=== PATIENT | male | born 1950 | race Caucasian/White ===

== ENCOUNTER 2022-01-08 09:25 | Day surgery (SDC) | payer MEDICARE, BC ==
[~2022-01-08 09:25] MED LIST: Sodium Chloride 0.9% 10 ML Syringe FLUSH PRN
[2022-01-08] MEDS ORDERED: Propofol 200 MG/20 ML SDV ONE ×2 (09:32→11:21)
[2022-01-08] MEDS: Lactated Ringers 1,000 ML IV SCH (09:56)
[2022-01-08 11:51] VITALS: BP 152/130; PULSE 80
== END 2022-01-08 12:35 | disposition home or self-care (01) ==
LOC: LL.SDS 09:25
PROVIDERS: ATTEND Surgery
DX: D12.0 Benign neoplasm of cecum (principal); D12.3 Benign neoplasm of transverse colon; K57.30 Diverticulosis of large intestine without perforation or abscess without bleeding; R80.8 Other proteinuria; L23.9 Allergic contact dermatitis, unspecified cause; I10 Essential (primary) hypertension; Z87.891 Personal history of nicotine dependence
CPT/HCPCS: J2704; J7120

== ENCOUNTER 2023-06-24 09:28 | Day surgery (SDC) | payer BC, MEDICARE ==
[~2023-06-24 09:28] MED LIST changes: +Midazolam 1 MG/ML 2 ML SDV ONE; +Propofol 200 MG/20 ML SDV ONE; -Sodium Chloride 0.9% 10 ML Syringe FLUSH PRN
[2023-06-24] MEDS ORDERED: Sodium Chloride 0.9% 10 ML Syringe FLUSH PRN (09:30)
[2023-06-24] MEDS: Lactated Ringers 1,000 ML IV SCH (09:55)
[2023-06-24] MEDS: Albuterol/Ipratropium 3.0-0.5 MG/3 ML Neb Soln NEB ONE (10:28)
== END 2023-06-24 12:44 | disposition home or self-care (01) ==
LOC: LL.SDS 09:28
PROVIDERS: ATTEND Surgery
DX: Z12.11 Encounter for screening for malignant neoplasm of colon (principal); D12.3 Benign neoplasm of transverse colon; N40.1 Benign prostatic hyperplasia with lower urinary tract symptoms; I10 Essential (primary) hypertension; J44.9 Chronic obstructive pulmonary disease, unspecified; E11.9 Type 2 diabetes mellitus without complications; Z86.16 Personal history of COVID-19; E78.5 Hyperlipidemia, unspecified; Z87.891 Personal history of nicotine dependence; Z79.51 Long term (current) use of inhaled steroids; Z79.899 Other long term (current) drug therapy; Z91.040 Latex allergy status
CPT/HCPCS: 45385; 82947; J7120; J2250; J2704; J7620-GY

== ENCOUNTER 2024-06-26 10:37 | Observation (INO) | payer MEDICARE ==
[2024-06-26] MEDS ORDERED: Sodium Chloride 0.9% 10 ML Syringe FLUSH PRN (10:42)
[2024-06-26 11:10] LABS: BASOPHILS ABSOLUTE AUTO 0.13 K/uL (0.00-0.20); BASOPHILS PERCENT AUTO 1.3 % (0.0-2.0); EOSINOPHILS ABSOLUTE AUTO 1.13 K/uL (0.00-0.50); EOSINOPHILS PERCENT AUTO 11.2 % (0.0-5.0); HEMATOCRIT 38.5 % (39.0-49.0); IMMATURE GRAN ABSOLUTE AUTO 0.01 10^3/uL (0.00-0.50); IMMATURE GRAN PERCENT AUTO 0.1 % (0.0-5.0); LYMPHOCYTES ABSOLUTE AUTO 2.35 K/uL (0.50-3.50); LYMPHOCYTES PERCENT AUTO 23.2 % (10.0-50.0); MEAN CORPUSCULAR HEMOGLOBIN 30.7 pg (28.2-33.3); MEAN CORPUSCULAR HGB CONC 33.8 g/dL (31.7-36.0); MEAN CORPUSCULAR VOLUME 90.8 fL (84.0-98.0); MONOCYTES ABSOLUTE AUTO 0.87 K/uL (0.00-1.00); MONOCYTES PERCENT AUTO 8.6 % (2.0-14.0); NEUTROPHILS ABSOLUTE AUTO 5.62 K/uL (1.40-7.00); NEUTROPHILS PERCENT AUTO 55.6 % (45.0-80.0); PLATELET COUNT,PLT 261 K/uL (150-350); RED BLOOD CELL COUNT 4.24 M/uL (4.33-5.41); RED CELL DISTRIBUTION WIDTH 12.7 % (11.2-14.1); WHITE BLOOD CELL COUNT,WBC 10.1 K/uL (4.0-10.2)
[2024-06-26 11:24] LABS: PROTHROMBIN TIME 10.1 SEC (9.0-11.1)
[2024-06-26] MEDS: Albuterol/Ipratropium 3.0-0.5 MG/3 ML Neb Soln NEB ONE ×2 (11:32→12:07)
[2024-06-26 11:36] LABS: LACTIC ACID 1.2 mmol/L (0.4-2.0)
[2024-06-26 11:39] LABS: ALANINE AMINOTRANSFERASE,ALT 23 U/L (12-78); ALBUMIN 3.3 g/dL (3.4-5.0); ALKALINE PHOSPHATASE 61 IU/L (46-116); ANION GAP 6.9 meq/L (7-15); ASPARTATE AMNIOTRANSFERASE,AST 13 U/L (15-37); BLOOD UREA NITROGEN,BUN 18 mg/dL (7-18); CALCIUM 9.1 mg/dL (8.5-10.1); CARBON DIOXIDE,CO2 30.1 mmol/L (21.0-32.0); CHLORIDE,CL 106 mmol/L (98-107); CREATININE 1.23 mg/dL (0.51-1.17); GLUCOSE RANDOM 115 mg/dL (70-99); POTASSIUM,K 4.6 mmol/L (3.5-5.1); PRO B-TYPE NATRIUR PEPT,BNPPRO 150 pg/mL (0-125); SODIUM,NA 143 mmol/L (136-145)
[2024-06-26 11:40] LABS: ESTIMATED GFR 62 mL/min (>=60)
[2024-06-26 12:05] LABS: BILIRUBIN,URINE NEGATIVE (NEGATIVE); COLOR,URINE YELLOW; GLUCOSE,URINE NEGATIVE (NEGATIVE); KETONES,URINE NEGATIVE (NEGATIVE); LEUKOCYTE ESTERASE,URINE NEGATIVE (NEGATIVE); NITRITE,URINE NEGATIVE (NEGATIVE); OCCULT BLOOD,URINE TRACE-INTACT (NEGATIVE); PROTEIN,URINE >=300 mg/dL (NEGATIVE); UROBILINOGEN,URINE 0.2 E.U./dL (0.2-1.0)
[2024-06-26 12:06] LABS: APPEARANCE,URINE SLIGHTLY CLOUDY
[2024-06-26 12:24] LABS: HYALINE CASTS,URINE FEW; RBC,URINE 0-5 /HPF; WBC,URINE 0-5 /HPF
[2024-06-26] MEDS ORDERED: Acetaminophen 500 MG Tab PO PRN (16:40)
[2024-06-26] MEDS ORDERED: Triamcinolone Acetonide 0.1% Crm 15 GM Tube TOP PRN (16:40)
[2024-06-26] MEDS: Albuterol/Ipratropium 3.0-0.5 MG/3 ML Neb Soln INH PRN (17:00)
[2024-06-26] MEDS: Iopamidol 755 Mg/ML 100 ML Bottle IVPUSH ONE (18:05)
[2024-06-26] MEDS: Rosuvastatin 10 MG Tab PO SCH (19:10)
[2024-06-26] MEDS: guaiFENesin 600 MG Tab.ER PO ONE (22:16)
[2024-06-27] MEDS: Isosorbide Mononitrate 30 MG Tab.ER PO SCH (07:40)
[2024-06-27] MEDS: guaiFENesin 600 MG Tab.ER PO SCH (07:40)
[2024-06-27] MEDS: amLODIPine 5 MG Tab PO SCH (07:40)
[2024-06-27] MEDS: Lisinopril 20 MG Tab PO SCH (07:40)
[2024-06-27] MEDS: Tamsulosin 0.4 MG Cap.ER PO SCH (09:43)
== END 2024-06-27 11:40 | disposition home or self-care (01) ==
LOC: LL.ED 10:37 → UNDOADMOB 15:24 → LL.MS 15:24
PROVIDERS: ADMIT Physician Assistant; ATTEND Physician Assistant
DX: J44.9 Chronic obstructive pulmonary disease, unspecified (principal); E11.9 Type 2 diabetes mellitus without complications; E78.00 Pure hypercholesterolemia, unspecified; E78.5 Hyperlipidemia, unspecified; Z91.040 Latex allergy status
CPT/HCPCS: 36415; 71046; 71250; 71275; 80053; 81001; 83605; 83735; 83880; 84484; 85025; 85610; 86140; 87040; 87428; 93005; 93010; 94640; 94761; 99285; A9270; Q9967; 99223; 99239; J7620-GY